=== PATIENT | female | born 1990 | race Caucasian/White ===

== ENCOUNTER 2018-12-18 08:35 | Emergency (ER) | payer MEDICAID ==
[~2018-12-18] VITALS: Ht 157.5 cm; Wt 51.5 kg
[~2018-12-18 08:35] MED LIST: HYDR-4383 PO; NO HOME MEDS
[2018-12-18 08:50] VITALS: BP 137/91
== END 2018-12-18 09:29 | disposition home or self-care (01) ==
LOC: ER 08:36
DX: M25.562 Pain in left knee (principal); Z88.1 Allergy status to other antibiotic agents; Z79.899 Other long term (current) drug therapy; X58.XXXA Exposure to other specified factors, initial encounter; Y93.89 Activity, other specified; Y92.89 Other specified places as the place of occurrence of the external cause; Y99.0 Civilian activity done for income or pay
CPT/HCPCS: 73564; 99283

== ENCOUNTER 2022-06-04 10:42 | Emergency (ER) | payer MEDICAID ==
[~2022-06-04] VITALS: Ht 167.6 cm; Wt 61.4 kg
[2022-06-04 11:29] LABS: URINE HCG NEGATIVE (NEG)
[2022-06-04 11:31] LABS: CLARITY,URINE SLIGHTLY CLOUDY (Clear); COLOR,URINE YELLOW (Yellow); GLUCOSE, URINE NEGATIVE (Neg); KETONES,URINE >=80 mg/dl (Neg); LEUKOCYTE ESTERASE ,URINE NEGATIVE (Neg); NITRITES, URINE NEGATIVE (Neg); OCCULT BLOOD,URINE NEGATIVE (Neg); PH,URINE >=9.0 (4.8-8.0); PROTEIN,URINE 30 mg/dl (Neg); UROBILINOGEN,URINE 0.2 E.U/dL (0.2-1.0)
[2022-06-04 11:34] LABS: UA COLLECTION TYPE NON-SPECIFIED
[2022-06-04 11:38] LABS: BACTERIA,URINE 1+ /HPF (Neg); MUCUS STRANDS MODERATE /LPF (Neg); RBC,URINE 0-2 /HPF (0-2); SQUAMOUS EPITHELIAL CELL,UR MANY /LPF (FEW); WBC,URINE 0-4 /HPF (0-4)
[2022-06-04 11:48] LABS: BASOPHILS # (AUTO) 0.1 X10'3 (0-0.2); EOSINOPHILS % (AUTO) 0.1 % (0-6); HEMOGLOBIN 16.6 g/dl (12.0-16.0); NEUTROPHILS # (AUTO) 10.8 X10'3 (1.8-7.7); NEUTROPHILS % (AUTO) 76.1 % (42-75); WHITE BLOOD COUNT 14.2 X10'3 (4.5-11.0)
[2022-06-04 11:49] LABS: BASOPHILS % (AUTO) 0.6 % (0-1); HEMATOCRIT 47.1 % (35.0-45.0); LYMPHOCYTES # (AUTO) 1.7 X10'3 (1.1-4.8); LYMPHOCYTES % (AUTO) 11.8 % (21-51); MEAN CORPUSCULAR HEMOGLOBIN 32.1 PG (27.0-31.0); MEAN CORPUSCULAR HGB CONC 35.3 g/dL (33.0-36.5); MEAN CORPUSCULAR VOLUME 90.9 FL (78-98); MEAN PLATELET VOLUME 8.4 FL (7.4-10.4); MONOCYTES # (AUTO) 1.6 X10'3 (0-0.9); MONOCYTES % (AUTO) 11.4 % (2-12); PLATELET COUNT 253 X10'3 (140-440); RED BLOOD COUNT 5.17 X10'6 (4.20-5.60); RED CELL DISTRIBUTION WIDTH 12.5 % (11.5-14.5)
[2022-06-04 12:09] LABS: ALANINE AMINOTRANSFERASE 20 U/L (12-78); ALBUMIN 4.1 G/DL (3.4-5.0); ALBUMIN/GLOBULIN RATIO 1.2 (1.1-1.5); ALKALINE PHOSPHATASE 52 IU/L (46-116); ANION GAP 17 (8-16); ASPARTATE AMINO TRANSFERASE 24 U/L (10-37); BILIRUBIN,TOTAL 1.6 MG/DL (0.1-1.0); BLOOD UREA NITROGEN 12 MG/DL (7-18); BUN/CREATININE RATIO 10.4 (6.6-38.0); CALCIUM 9.1 MG/DL (8.5-10.1); CHLORIDE 108 MMOL/L (99-107); CREATININE 1.15 MG/DL (0.40-0.90); GLUCOSE 114 MG/DL (70-104); LIPASE < 50 U/L (73-393); POTASSIUM 3.6 MMOL/L (3.5-5.1); SODIUM 145 MMOL/L (135-145); TOTAL CARBON DIOXIDE 20.5 MMOL/L (24-32); TOTAL PROTEIN 7.6 G/DL (6.4-8.2); eGFR 54 ML/MIN
[2022-06-04] MEDS ORDERED: normal saline 1000ML IV soln IVB ONE (12:15)
[2022-06-04] MEDS ORDERED: ketorolac tromethamine 15mg/ml inj. IV ONE (12:15)
[2022-06-04] MEDS ORDERED: meperidine/PF 50mg/ml syringe IV ONE (14:00)
[2022-06-04] MEDS ORDERED: TADA5TAB2 PO (14:08)
[2022-06-04] MEDS ORDERED: NAPR-56 PO (14:08)
[2022-06-04] MEDS ORDERED: sildenafil citrate 20mg tablet PO SCH (14:35)
[2022-06-04 15:03] VITALS: BP 134/89
== END 2022-06-04 15:41 | disposition home or self-care (01) ==
LOC: ER 10:42
DX: N23 Unspecified renal colic (principal); Z88.1 Allergy status to other antibiotic agents; Z98.51 Tubal ligation status
CPT/HCPCS: 74176; 80053; 81001; 81025; 83690; 85025; 96361; 96374; 96375; 99285; J1885; J2175; J7030

== ENCOUNTER 2025-03-28 12:48 | Emergency (ER) | payer MEDICAID, OTHER ==
[~2025-03-28] VITALS: Ht 154.9 cm; Wt 66.1 kg
[2025-03-28 12:50] VITALS: TEMP 98
--- NOTE | 2025-03-28 13:25 | RADIOLOGY REPORT ---
CLINICAL INDICATION: HAND PAIN TECHNIQUE: 3 views right hand DI HAND, COMPLETE (3VW MIN) Comparison: None FINDINGS/IMPRESSION: : There is no evidence of acute fracture or dislocation. Soft tissues are unremarkable.
[2025-03-28] MEDS: ketorolac trometh 30MG/ML vial 30 MG/ML VIAL IM ONE (14:10)
--- NOTE | 2025-03-28 14:51 | Physician Documentation ---
History of Present Illness ~ Chief Complaint: Mechanical Fall Stated Complaint: FALL Time Seen by MD: 14:40 OK to notify your PCP?: Yes Primary Medical Doctor: NONE Source: patient Mode of Arrival: POV Exam Limitations: no limitations HPI 35-year-old female presents after tripping and falling over stool at her job 2 days ago. She reports having right knee, right hand and nose pain. Full range of motion in her extremities and has been taking Tylenol for the pain. Denies loss of consciousness, neck pain or blood thinner use. Tetanus within 5 Years?: No Medication Reconciliation Allergies: Coded Allergies: azithromycin (Verified Allergy, Unknown, 11/28/12) Scheduled PRN Hydrocodone/Acetaminophen (Morgan 5-325 Tablet), 1 TABLET PO BID PRN for pain Miscellaneous Medications Home Med List (No Home Medications), (Reported) Past Medical History Past Medical History: No Pertinent History Past Surgical History: tubal ligation Alcohol Use: None Drug Use: none Lives In: Home Occupation: employed Review of Systems All Other Systems at this time: Reviewed and Negative Physical Exam Vital Signs: RN Vital Signs have been reviewed: Yes, Temperature: 98.0, Source: Temporal, Heart Rate: 70, Respiratory Rate: 16, BP: 153/90, Pulse Oximetry: 97, Weight: 66.100 Oxygen Flow Rate: 0 Pulse Oximetry Reflects: adequate oxygenation Physical Exam General: Alert, no distress. HEENT: No injection, moist mucous membranes. Contusion to bridge of nose, appears straight, slight edema and tenderness to palpation. Neck: Full range of motion. Respiratory: No respiratory distress, equal chest rise and fall. Chest: No accessory muscle use. Cardiovascular: Regular rate and rhythm. Gastrointestinal: Nondistended. Extremities: Normal range of motion, no deformity. Slight bruising to right knee, good range of motion, good pulses, good CSM. Right hand-full range of motion, good pulses, good CSM Neurologic: Oriented x4. Psychiatric: Normal mood and affect. Skin: Normal color, warm and dry. Progress Results/Orders Reviewed/noted all lab results: Yes Results/Orders Medications Received in ER Medications (Trade) Dose Ordered Sig/Jarad Route PRN Reason Start Time Stop Time Status Last Admin Dose Admin (Toradol inj. 30mg/ml) 30 mg ONCE ONCE IM 03/28/25 13:55 03/28/25 13:56 DC 03/28/25 14:10 30 MG Vital Signs 03/28/25 03/28/25 12:50 15:04 Temp 98.0 Pulse 70 55 Resp 16 18 B/P (MAP) 153/90 138/81 Pulse Ox 97 96 O2 Flow Rate 0 EKG/XRAY/CT/US/VASC/MRI Bone/Soft Tissue X-Ray (Ext.) : Additional Comment Right hand x-ray as interpreted by me; no joint effusion, no acute fracture, no soft tissue swelling, no dislocation, or foreign body. Medical Decision Making Findings 35-year-old female presents after a fall 2 days ago with right hand and knee pain as well as a contusion to the bridge of her nose. Physical exam is unremarkable. X-ray for right hand shows no acute fracture or dislocation. She does not meet any criteria for trauma alert as she has no neck pain, headaches, loss of consciousness or blood thinner use. She has been managing at home with ibuprofen and states that this swelling on the bridge of the nose was worse yesterday but seems to have decreased today. Given a Toradol injection while h ere in the department and told to continue with NSAIDs in the morning as well as the RICE method. She can follow up with her primary care provider or work comp provider in the next 3 days and return back here for any new or worsening symptoms. Differential Dx:Considerations: Include: Closed head injury, Fracture(s), Abrasion(s), Hematoma(s) Departure Disposition: 01 HOME / SELF CARE / HOMELESS Impression: Primary Impression: Fall Condition: Stable Discharge Instructions: Fall Prevention in the Home, Adult, [id number] Additional Instructions: Use Tylenol and/or ibuprofen for pain and swelling at home. Can use ice 20 min on/off for pain relief as well and elevate the affected joints when laying down to help with swelling. Follow up with your PCP in 3 days and return back here for any new or worsening symptoms. Referrals: NO PRIMARY CARE PROVIDER (PCP) Education Educated: Patient Educated regarding: diagnosis, treatment, prognosis, need for follow up Signature Scribe Signature: . Attestation: Scribed for Laure Moyer by Laure Saavedra NP . 03/28/25 15:36 LAURE MOYER Mar 28, 2025 14:51
[2025-03-28 15:04] VITALS: BP 138/81; PULSE 55; RESP 18; O2SAT 96
== END 2025-03-28 15:10 | disposition home or self-care (01) ==
LOC: ER 12:49
DX: S00.33XA Contusion of nose, initial encounter (principal); Z88.1 Allergy status to other antibiotic agents; Z98.51 Tubal ligation status; W01.0XXA Fall on same level from slipping, tripping and stumbling without subsequent striking against object, initial encounter; Y93.89 Activity, other specified; Y92.89 Other specified places as the place of occurrence of the external cause; Y99.8 Other external cause status
CPT/HCPCS: 73130; 96372; 99283; J1885